=== PATIENT | male | born 1950 | race Caucasian/White ===

== ENCOUNTER → 2024-08-24 08:54 | Outpatient (REF) | payer OTHER, SELFPAY | LOC: RCS 08:54 | PROVIDERS: ATTENDING PHYSICIAN Internal Medicine Cardiovascular Disease; FAMILY PHYSICIAN Family Medicine | DX: R94.31 Abnormal electrocardiogram [ECG] [EKG] (principal); Z95.1 Presence of aortocoronary bypass graft; I48.91 Unspecified atrial fibrillation; I25.5 Ischemic cardiomyopathy | CPT/HCPCS: 93306 ==